=== PATIENT | male | born 1945 | race Caucasian/White ===

== ENCOUNTER 2019-02-17 13:45 | Emergency (ER) | payer MEDICARE, OTHER ==
--- NOTE | 2019-02-17 14:22 | EDM.PDOC ---
ED HPI GENERAL MEDICAL PROBLEM - General Chief Complaint: Cardiovascular Problem Stated Complaint: [facility] Time Seen by Provider: 02/17/19 14:16 - History of Present Illness INITIAL COMMENTS - FREE TEXT/NARRATIVE: 73-year-old male presents emergency room with an episode of significant shortness of breath. The patient was out hunting and exerted himself much harder than he normally does after he shot a deer. He pushed himself up a hill and developed some significant shortness of breath. He did not have associated chest pain with this this shortness of breath did get better. At this time the patient has no chest pain chest discomfort no anginal equivalence no breathing difficulties no shortness of breath. After the event that occurred around 11:00 or 11:30 it took the patient much longer to catch his breath than he is normally used to. The patient has a history of multiple stents he has not been taking his aspirin lately he's been off Plavix for quite some time. He may have had a small heart attack in the past according to the patient. The patient had 2 stents placed about 4 years ago a single stent about 8 or 9 years ago and a single stent about 6 years ago. EMS did give him [address] in. - Related Data Allergies Allergy/AdvReac Type Severity Reaction Status Date / Time No Known Allergies Allergy Verified 02/17/19 13:53 Past Medical History Cardiovascular History: Reports: Stents Other Cardiovascular History: x4 stents Gastrointestinal History: Reports: Colon Polyp - Past Surgical History GI Surgical History: Reports: Appendectomy, Colonoscopy Social & Family History - Family History Family Medical History: Noncontributory - Tobacco Use Smoking Status *Q: Never Smoker - Caffeine Use Caffeine Use: Reports: Coffee, Soda, Tea - Recreational Drug Use Recreational Drug Use: No ED ROS GENERAL - Review of Systems Review Of Systems: See Below Constitutional: Reports: No Symptoms HEENT: Reports: No Symptoms Respiratory: Reports: No Symptoms Cardiovascular: Reports: No Symptoms Endocrine: Reports: No Symptoms GI/Abdominal: Reports: No Symptoms : Reports: No Symptoms Neurological: Reports: No Symptoms Psychiatric: Reports: No Symptoms ED EXAM, GENERAL - Physical Exam Exam: See Below Exam Limited By: No Limitations General Appearance: Alert, No Apparent Distress Head: Atraumatic, Normocephalic Neck: Normal Inspection, Supple, Non-Tender, Full Range of Motion Respiratory/Chest: No Respiratory Distress, Lungs Clear, Normal Breath Sounds Cardiovascular: Regular Rate, Rhythm, No Edema, No Murmur GI/Abdominal: Normal Bowel Sounds, Soft, Non-Tender Back Exam: Normal Inspection. No: CVA Tenderness (L), CVA Tenderness (R) Extremities: Normal Inspection, No Pedal Edema Neurological: Alert, Oriented, Normal Cognition Course - Vital Signs Last Recorded V/S: Last Vital Signs Temp 36.7 C 02/17/19 13:47 Pulse 59 L 02/17/19 13:47 Resp 14 02/17/19 13:47 BP 126/77 02/17/19 15:22 Pulse Ox 96 02/17/19 13:47 - Orders/Labs/Meds Orders: Active Orders 24 hr Category Date Time Status EKG Documentation Completion [RC] ASDIRECTED Care 02/17/19 14:18 Active EKG 12 Lead [EK] Stat Ther 02/17/19 14:17 Ordered Labs: Laboratory Tests 02/17/19 02/17/19 Range/Units 13:55 13:55 WBC 7.51 (4.23-9.07) K/mm3 RBC 5.08 (4.63-6.08) M/mm3 Hgb 15.6 (13.7-17.5) gm/dl Hct 45.4 (40.1-51.0) % MCV 89.4 (79.0-92.2) fl MCH 30.7 (25.7-32.2) pg MCHC 34.4 (32.2-35.5) g/dl RDW Std Deviation 42.2 (35.1-43.9) fL Plt Count 230 (163-337) K/mm3 MPV 9.7 (9.4-12.3) fl Neut % (Auto) 71.9 H (34.0-67.9) % Lymph % (Auto) 18.1 L (21.8-53.1) % [place] % (Auto) 8.5 (5.3-12.2) % Eos % (Auto) 0.7 L (0.8-7.0) Baso % (Auto) 0.4 (0.1-1.2) % Neut # (Auto) 5.40 H (1.78-5.38) K/mm3 Lymph # (Auto) 1.36 (1.32-3.57) K/mm3 [place] # (Auto) 0.64 (0.30-0.82) K/mm3 Eos # (Auto) 0.05 (0.04-0.54) K/mm3 Baso # (Auto) 0.03 (0.01-0.08) K/mm3 Sodium 146 H (136-145) mEq/L Potassium 3.9 (3.5-5.1) mEq/L Chloride 109 H (98-107) mEq/L Carbon Dioxide 24 (21-32) mEq/L Anion Gap 16.9 H (5-15) BUN 22 H (7-18) mg/dL Creatinine 1.2 (0.7-1.3) mg/dL Est Cr Clr Drug Dosing 54.83 mL/min Estimated GFR (MDRD) 59 (>60) mL/min BUN/Creatinine Ratio 18.3 H (14-18) Glucose 100 (83-115) mg/dL Calcium 8.7 (8.5-10.1) mg/dL Total Bilirubin 0.6 (0.2-1.0) mg/dL AST 22 (15-37) U/L ALT 33 (16-63) U/L Alkaline Phosphatase 89 (46-116) U/L Troponin I < 0.017 (0.00-0.056) ng/mL Total Protein 7.0 (6.4-8.2) g/dl Albumin 3.8 (3.4-5.0) g/dl Globulin 3.2 gm/dL Albumin/Globulin Ratio 1.2 (1-2) - Re-Assessments/Exams Free Text/Narrative Re-Assessment/Exam: 02/17/19 16:33 Workup is been uneventful for this gentleman troponin negative EKG doesn't show any ischemia. Chest x-ray unremarkable. He has been absolutely symptom-free here in the emergency department and would like to go. We will discharge at this point. I strongly suspect he overexerted himself. Departure - Departure Time of Disposition: 16:35 Disposition: Home, Self-Care 01 Clinical Impression: Exertional shortness of breath Referrals: PCP,Unknown [Primary Care Provider] - Forms: ED Department Discharge Additional Instructions: Return to the emergency room with any questions problems or worsening symptoms. Restart a baby aspirin 81 mg daily preferably enteric-coated. Follow-up with your regular health care provider when you get back to [place] early this next week. - My Orders Last 24 Hours: My Active Orders 02/17/19 14:17 EKG 12 Lead [EK] Stat 02/17/19 14:18 EKG Documentation Completion [RC] ASDIRECTED - Assessment/Plan Last 24 Hours: My Active Orders 02/17/19 14:17 EKG 12 Lead [EK] Stat 02/17/19 14:18 EKG Documentation Completion [RC] ASDIRECTED
--- NOTE | 2019-02-17 15:12 | CR ---
Chest: Frontal view of the chest was obtained. Comparison: No prior chest x-ray. Heart size is within normal limits. Tortuous thoracic aorta is seen. Lungs are clear. Bony structures are grossly intact. Impression: 1. Nothing acute is seen on frontal chest x-ray. Diagnostic code #1
== END 2019-02-17 16:44 | disposition home or self-care (01) ==
LOC: JD.ED 13:45
DX: R06.02 Shortness of breath (principal); Z95.5 Presence of coronary angioplasty implant and graft
CPT/HCPCS: 36415; 71045; 71045-26; 80053; 84484; 85025; 93005; 93010; 99283; 99285-25